=== PATIENT | female | born 1990 | race Caucasian/White ===

== ENCOUNTER → 2017-09-05 | Outpatient (CLI) | payer BC ==
[~2017-09-05] MED LIST: AMOXICILLIN500 MG PO; ANAPROX DS550 MG PO; BIRTH CONTROL1 EAC1 PO; CLARITIN10 MG PO; FIORICET 325 MG1 TAB PO; FLEXERIL10 MG PO; FLEXERIL5 MG PO; KEFLEX500 MG PO; MAXALT5 MG PO; MOTRIN800 MG PO; ZITHROMAX Z PA250 MG PO
== END | disposition home or self-care (01) ==
LOC: US 10:25
DX: E04.1 Nontoxic single thyroid nodule (principal)

== ENCOUNTER 2017-12-03 17:11 | Emergency (ER) | payer BC ==
[~2017-12-03] VITALS: Ht 162.5 cm; Wt 79.4 kg
[2017-12-03 17:13] VITALS: BP 115/73
[2017-12-03 18:19] LABS: BASO % 0.2 % (0.0-1.0); EOS # 0.1 10*3/uL (0.0-0.4); EOS % 0.6 % (1.0-4.0); HEMATOCRIT 41.1 % (37.0-47.0); HEMOGLOBIN 13.7 g/dl (12.0-16.0); LYMPH # 2.8 10*3/uL (1.3-4.4); LYMPH % 21.6 % (27.0-41.0); MEAN CELL VOLUME 82.2 fl (81.0-99.0); MEAN CORPUSCULAR HGB 27.4 pg (27.0-31.0); MEAN CORPUSCULAR HGB CONC 33.3 g/dl (33.0-37.0); MEAN PLATELET VOLUME 9.2 fl (9.6-12.3); NEUT # 8.8 10*3/uL (2.3-7.9); NEUT % 69.3 % (47.0-73.0); PLATELET COUNT AUTOMATED 305 10*3/uL (130-400); RED CELL DISTRI WIDTH 14.4 % (0-14.5); WHITE BLOOD COUNT 12.8 10*3/uL (4.8-10.8)
[2017-12-03 18:24] LABS: BILIRUBIN 1+ (NEGATIVE); BLOOD 2+ (NEGATIVE); CLARITY SL CLOUDY (CLEAR); COLOR YELLOW (YELLOW); GLUCOSE NEGATIVE (NEGATIVE); KETONE 2+ (NEGATIVE); LEUKO ESTERASE NEGATIVE (NEGATIVE); NITRITE NEGATIVE (NEGATIVE); SPECIFIC GRAVITY 1.025 (1.005-1.030)
[2017-12-03 18:30] LABS: ACT PARTIAL THROMBO TIME 30.3 SECONDS (20.8-31.5)
[2017-12-03 18:36] LABS: ALBUMIN 3.7 gm/dl (3.1-4.5); ALKALINE PHOSPHATASE 70 U/L (45-117); BUN 12 mg/dl (7-24); CHLORIDE 103 mmol/L (98-107); CREATININE 0.74 mg/dL (0.55-1.02); POTASSIUM 3.6 mmol/L (3.5-5.1); SGOT/AST 19 IU/L (3-35); SGPT/ALT 19 U/L (12-78); SODIUM 136 mmol/L (136-145); TOTAL PROTEIN 8.7 gm/dL (6.4-8.2)
[2017-12-03 18:37] LABS: B-hCG (QUALITATIVE) NEGATIVE (NEGATIVE)
[2017-12-03 18:37] LABS: EPITHELIAL CELLS 15-20; MUCOUS 1+
[2017-12-03 18:38] LABS: TROPONIN I < 0.015 ng/ml (<0.045)
[2017-12-03] MEDS ORDERED: ZITHROMAX250 MG PO (20:06)
[2017-12-03] MEDS ORDERED: PROAIR HFA8.5 GM INH (20:07)
== END 2017-12-03 20:56 | disposition home or self-care (01) ==
LOC: ED 17:11
PROVIDERS: Physician Assistant
DX: J02.0 Streptococcal pharyngitis (principal); J18.1 Lobar pneumonia, unspecified organism; Z88.6 Allergy status to analgesic agent; Z79.899 Other long term (current) drug therapy

== ENCOUNTER → 2019-04-14 | Outpatient (CLI) | payer BC ==
[~2019-04-14] MED LIST changes: +PROAIR HFA8.5 GM INH; +ZITHROMAX250 MG PO
== END | disposition home or self-care (01) ==
LOC: RAD 11:14
DX: K59.00 Constipation, unspecified (principal); R30.0 Dysuria; R53.83 Other fatigue; R61 Generalized hyperhidrosis

== ENCOUNTER 2020-05-28 18:15 | Emergency (ER) | payer BC, MEDICAID ==
[~2020-05-28] VITALS: Ht 162.5 cm; Wt 81.6 kg
[2020-05-28] MEDS ORDERED: ZINC10 M4 PO (18:51)
[2020-05-28 20:43] VITALS: BP 110/68
== END 2020-05-28 21:03 | disposition home or self-care (01) ==
LOC: ED 18:15
DX: B34.9 Viral infection, unspecified (principal); Z20.828 Contact with and (suspected) exposure to other viral communicable diseases; G43.909 Migraine, unspecified, not intractable, without status migrainosus; Z88.6 Allergy status to analgesic agent; Z79.899 Other long term (current) drug therapy

== ENCOUNTER → 2021-07-03 | Outpatient (CLI) | payer OTHER ==
[~2021-07-03] MED LIST changes: +ZINC10 M4 PO
== END | disposition home or self-care (01) ==
LOC: RAD 15:07
PROVIDERS: ATTEND Nurse Practitioner Family
DX: U07.1 COVID-19 (principal); R09.81 Nasal congestion; R10.13 Epigastric pain; J02.9 Acute pharyngitis, unspecified; J10.1 Influenza due to other identified influenza virus with other respiratory manifestations

== ENCOUNTER → 2022-12-31 | Outpatient (CLI) | payer OTHER | LOC: RAD 13:43 | PROVIDERS: ATTEND Nurse Practitioner Family | DX: M25.511 Pain in right shoulder (principal) ==

== ENCOUNTER → 2025-07-05 | Outpatient (CLI) | payer SELFPAY | END | disposition home or self-care (01) | LOC: LAB 12:35 | PROVIDERS: ATTEND Nurse Practitioner Family | DX: I73.00 Raynaud's syndrome without gangrene (principal) ==